=== PATIENT | male | born 1995 | race Caucasian/White ===

== ENCOUNTER 2025-01-31 20:53 | Emergency (ER) | payer BC ==
[2025-01-31] MEDS ORDERED: Sodium Chloride 0.9% 10 ML Syringe FLUSH PRN (21:12)
[2025-01-31 21:30] LABS: BASOPHILS ABSOLUTE AUTO 0.1 K/mm3 (0.0-0.2); BASOPHILS PERCENT AUTO 0.5 % (0.0-1.0); EOSINOPHILS ABSOLUTE AUTO 0.1 K/mm3 (0.0-0.4); HEMOGLOBIN 16.1 gm/dl (14.0-18.0); IMMATURE GRAN ABSOLUTE AUTO 0.03 K/mm3 (0.00-0.05); IMMATURE GRAN PERCENT AUTO 0.3 % (0.0-0.4); LYMPHOCYTES ABSOLUTE AUTO 3.5 K/mm3 (1.0-4.8); LYMPHOCYTES PERCENT AUTO 33.3 % (24.0-44.0); MEAN CORPUSCULAR HEMOGLOBIN 30.4 pg (28.0-32.0); MEAN CORPUSCULAR HGB CONC 35.8 g/dl (32.0-36.0); MEAN CORPUSCULAR VOLUME 85.1 fl (83.0-99.0); MEAN PLATELET VOLUME 10.1 fl (9.4-12.4); MONOCYTES ABSOLUTE AUTO 1.2 K/mm3 (0.0-0.8); MONOCYTES PERCENT AUTO 11.5 % (0.0-8.0); NEUTROPHILS ABSOLUTE AUTO 5.6 K/mm3 (1.8-7.7); NEUTROPHILS PERCENT AUTO 53.4 % (41.0-71.0); PLATELET COUNT,PLT 245 K/mm3 (150-400); RED BLOOD CELL COUNT 5.29 M/mm3 (4.52-5.90); WHITE BLOOD CELL COUNT,WBC 10.44 K/mm3 (3.9-11.3)
[2025-01-31] MEDS: Diltiazem 125 MG in Sodium Chloride 0.9% 100 ML IV SCH (21:32)
[2025-01-31] MEDS: Diltiazem 25 MG/5 ML SDV IVPUSH ONE (21:35)
[2025-01-31] MEDS: Sodium Chloride 0.9% 1,000 ML IV SCH (21:46)
[2025-01-31 22:06] LABS: A/G RATIO 1.3 (1-2); ANION GAP 11.2 (5-15); BILIRUBIN TOTAL 0.4 mg/dL (0.2-1.0); BUN/CREATININE RATIO 13.6 (14-18); CALCIUM 9.2 mg/dL (8.5-10.1); CREATININE 1.1 mg/dL (0.7-1.3); EST CRCL DRUG DOSING (CG) 119.46 mL/min; MAGNESIUM 1.9 mg/dL (1.8-2.4); POTASSIUM,K 4.2 mEq/L (3.5-5.1); PROTEIN TOTAL,TP 7.2 g/dl (6.4-8.2); TSH 2.249 uIU/mL (0.358-3.74)
[2025-01-31] MEDS: Ibutilide 1 MG/10 ML Vial IVPUSH ONE (22:48)
[2025-01-31] MEDS ORDERED: Propofol 200 MG/20 ML SDV IVPUSH ONE (23:25)
== END 2025-02-01 00:49 | disposition home or self-care (01) ==
LOC: JD.ED 20:53
DX: I48.91 Unspecified atrial fibrillation (principal)
CPT/HCPCS: 36415; 71045; 80053; 83735; 83880; 84443; 84484; 85025; 93005; 93246; 96365; 96366; 96375; 99285; J1742; J3490; J7030; 93010; 99284

== ENCOUNTER 2025-02-10 14:00 | Day surgery (SDC) | payer BC ==
[~2025-02-10 14:00] MED LIST: HYDROmorphone 0.5 MG/0.5 ML Syringe IVPUSH PRN; Ondansetron 4 MG/2 ML SDV IVPUSH PRN; Sodium Chloride 0.9% 10 ML Syringe FLUSH PRN; Sodium Chloride 0.9% 10 ML Syringe FLUSH SCH; fentaNYL 100 MCG/2 ML SDV IVPUSH PRN
[2025-02-10] MEDS: Lactated Ringers 1,000 ML IV SCH (14:20)
[2025-02-10] MEDS ORDERED: Propofol 200 MG/20 ML SDV ONE ×2 (14:47→15:35)
[2025-02-10] MEDS ORDERED: Ketamine 200 MG/20 ML MDV ONE (14:47)
[2025-02-10] MEDS ORDERED: Midazolam 1 MG/ML 2 ML SDV ONE (14:47)
[2025-02-10] MEDS ORDERED: fentaNYL 100 MCG/2 ML SDV ONE (14:52)
[2025-02-10] MEDS: Bupivacaine 0.5% 30 ML SDV ONE (15:24)
[2025-02-10] MEDS: EPINEPHrine 1 MG/ML SDV ONE (15:24)
[2025-02-10] MEDS ORDERED: Metoprolol Tartrate 5 MG/5 ML SDV ONE (15:39)
[2025-02-10] MEDS ORDERED: Ketorolac 30 MG/ML SDV ONE (15:40)
== END 2025-02-10 16:50 | disposition home or self-care (01) ==
LOC: JD.SDS 14:00
PROVIDERS: ATTEND Surgery
DX: L05.01 Pilonidal cyst with abscess (principal)
CPT/HCPCS: 11771; 87070; 87075; 87077; 87186; 87205; 93005; J0171; J0665; J1885; J2250; J2704; J3010; J3490; J7120; 00300

== ENCOUNTER 2025-03-17 10:29 | Emergency (ER) | payer BC ==
[2025-03-17 11:24] LABS: APPEARANCE,URINE CLEAR (Clear); BILIRUBIN,URINE NEGATIVE (Negative); COLOR,URINE YELLOW (Yellow); GLUCOSE,URINE NEGATIVE (Negative); KETONES,URINE NEGATIVE (Negative); LEUKOCYTE ESTERASE,URINE NEGATIVE (Negative); NITRITE,URINE NEGATIVE (Negative); OCCULT BLOOD,URINE NEGATIVE (Negative); PROTEIN,URINE 1+ (Negative); UROBILINOGEN,URINE 0.2 (0.2-1.0)
[2025-03-17] MEDS: Ketorolac 15 MG/ML SDV IVPUSH ONE (11:24)
[2025-03-17] MEDS: Sodium Chloride 0.9% 1,000 ML IV ONE (11:25)
[2025-03-17 11:32] LABS: BASOPHILS PERCENT AUTO 0.2 % (0.0-1.0); EOSINOPHILS ABSOLUTE AUTO 0.1 K/mm3 (0.0-0.4); EOSINOPHILS PERCENT AUTO 0.6 % (0.0-6.0); HEMATOCRIT 46.9 % (42.0-52.0); HEMOGLOBIN 16.3 gm/dl (14.0-18.0); IMMATURE GRAN ABSOLUTE AUTO 0.02 K/mm3 (0.00-0.05); IMMATURE GRAN PERCENT AUTO 0.2 % (0.0-0.4); LYMPHOCYTES PERCENT AUTO 24.9 % (24.0-44.0); MEAN CORPUSCULAR HEMOGLOBIN 30.5 pg (28.0-32.0); MEAN CORPUSCULAR HGB CONC 34.8 g/dl (32.0-36.0); MEAN CORPUSCULAR VOLUME 87.8 fl (83.0-99.0); MEAN PLATELET VOLUME 10.4 fl (9.4-12.4); MONOCYTES ABSOLUTE AUTO 0.9 K/mm3 (0.0-0.8); MONOCYTES PERCENT AUTO 11.6 % (0.0-8.0); NEUTROPHILS PERCENT AUTO 62.5 % (41.0-71.0); PLATELET COUNT,PLT 213 K/mm3 (150-400); RED BLOOD CELL COUNT 5.34 M/mm3 (4.52-5.90); WHITE BLOOD CELL COUNT,WBC 8.02 K/mm3 (3.9-11.3)
[2025-03-17] MEDS ORDERED: Sodium Chloride 0.9% 10 ML Syringe FLUSH PRN (11:36)
[2025-03-17 11:44] LABS: A/G RATIO 1.4 (1-2); ANION GAP 14.2 (5-15); CALCIUM 8.9 mg/dL (8.5-10.1); EST CRCL DRUG DOSING (CG) 131.41 mL/min; POTASSIUM,K 4.2 mEq/L (3.5-5.1); PROTEIN TOTAL,TP 6.9 g/dl (6.4-8.2)
[2025-03-17 11:47] LABS: BACTERIA,URINE FEW /hpf (FEW); MUCUS,URINE MANY /hpf (FEW); RBC,URINE 0-5 /hpf (0-5); SQUAMOUS EPITHELIAL CELLS,UR 0-5 /hpf (0-5); WBC,URINE 0-5 /hpf (0-5)
[2025-03-17] MEDS: Sodium Chloride 0.9% 10 ML Syringe FLUSH PRN (14:48)
[2025-03-17] MEDS: Iopamidol 612 MG/ML 30 ML SDV IVPUSH ONE (14:48)
[2025-03-17] MEDS: Iopamidol 612 MG/ML 100 ML Bottle IVPUSH ONE (14:48)
== END 2025-03-17 17:14 | disposition home or self-care (01) ==
LOC: JD.ED 10:29
DX: K63.89 Other specified diseases of intestine (principal); Z88.8 Allergy status to other drugs, medicaments and biological substances
CPT/HCPCS: 36415; 74177; 80053; 81001; 83690; 85025; 96360; 99284; J1885; J7030; Q9967

== ENCOUNTER 2025-03-21 11:20 | Emergency (ER) | payer BC ==
[2025-03-21] MEDS ORDERED: Sodium Chloride 0.9% 10 ML Syringe FLUSH PRN (11:37)
[2025-03-21 11:52] LABS: BASOPHILS PERCENT AUTO 0.3 % (0.0-1.0); EOSINOPHILS PERCENT AUTO 0.1 % (0.0-6.0); HEMATOCRIT 51.2 % (42.0-52.0); IMMATURE GRAN ABSOLUTE AUTO 0.02 K/mm3 (0.00-0.05); IMMATURE GRAN PERCENT AUTO 0.3 % (0.0-0.4); LYMPHOCYTES ABSOLUTE AUTO 0.4 K/mm3 (1.0-4.8); LYMPHOCYTES PERCENT AUTO 4.8 % (24.0-44.0); MEAN CORPUSCULAR HEMOGLOBIN 30.3 pg (28.0-32.0); MEAN CORPUSCULAR VOLUME 86.8 fl (83.0-99.0); MEAN PLATELET VOLUME 10.1 fl (9.4-12.4); MONOCYTES ABSOLUTE AUTO 0.4 K/mm3 (0.0-0.8); MONOCYTES PERCENT AUTO 5.5 % (0.0-8.0); NEUTROPHILS ABSOLUTE AUTO 6.7 K/mm3 (1.8-7.7); PLATELET COUNT,PLT 193 K/mm3 (150-400)
[2025-03-21 11:54] LABS: HEMOGLOBIN 17.9 gm/dl (14.0-18.0)
[2025-03-21 12:13] LABS: A/G RATIO 1.2 (1-2); ALANINE AMINOTRANSFERASE,ALT 77 U/L (16-63); ALBUMIN 4.1 g/dl (3.4-5.0); ALKALINE PHOSPHATASE 56 U/L (46-116); ANION GAP 14.8 (5-15); ASPARTATE AMNIOTRANSFERASE,AST 34 U/L (15-37); BILIRUBIN TOTAL 1.1 mg/dL (0.2-1.0); BLOOD UREA NITROGEN,BUN 16 mg/dL (7-18); BUN/CREATININE RATIO 14.5 (14-18); C-REACTIVE PROTEIN 5.43 mg/dL (<0.30); CALCIUM 8.5 mg/dL (8.5-10.1); CARBON DIOXIDE,CO2 28 mEq/L (21-32); CHLORIDE,CL 100 mEq/L (98-107); CREATININE 1.1 mg/dL (0.7-1.3); ESTIMATED GFR 92 mL/min (>60); GLUCOSE RANDOM 119 mg/dL (70-99); POTASSIUM,K 3.8 mEq/L (3.5-5.1); PROTEIN TOTAL,TP 7.5 g/dl (6.4-8.2); SODIUM,NA 139 mEq/L (136-145)
[2025-03-21 12:16] LABS: LACTIC ACID 1.7 mmol/L (0.4-2.0)
[2025-03-21] MEDS: Ondansetron 4 MG/2 ML SDV IVPUSH ONE (12:35)
[2025-03-21] MEDS: Magnesium Sulf/Wat 2 GM/50 mL 2 GM in Premix Bag 1 BAG IV ONE (13:11)
[2025-03-21] MEDS: Sodium Chloride 0.9% 1,000 ML IV STA ×2 (13:12→14:28)
[2025-03-21] MEDS: Sodium Chloride 0.9% 10 ML Syringe FLUSH ONE (14:06)
[2025-03-21] MEDS: Iopamidol 612 MG/ML 100 ML Bottle IVPUSH ONE (14:06)
[2025-03-21] MEDS: Ketorolac 30 MG/ML SDV IVPUSH ONE (14:27)
[2025-03-21] MEDS: Labetalol 100 MG/20 ML MDV ONE (14:28)
== END 2025-03-21 16:40 | disposition home or self-care (01) ==
LOC: JD.ED 11:20
DX: K52.9 Noninfective gastroenteritis and colitis, unspecified (principal); K63.89 Other specified diseases of intestine; I48.91 Unspecified atrial fibrillation; Z88.8 Allergy status to other drugs, medicaments and biological substances
CPT/HCPCS: 36415; 74177; 80053; 83605; 83735; 85025; 85379; 86140; 93005; 96365; 96366; 96375; 99284; J1885; J1920; J2405; J3475; J7030; Q9967; 93010